=== PATIENT | female | born 1990 | race Caucasian/White ===

== ENCOUNTER 2023-10-20 06:53 | Outpatient (OUT) | payer OTHER, SELFPAY ==
[2023-10-20 07:33] LABS: Basophils Absolute Auto 0.1 10^3/uL (0.0-0.1); Basophils Percent Auto 0.6 % (0.2-2.0); Eosinophils Absolute Auto 0.1 10^3/uL (0.0-0.7); Eosinophils Percent Auto 1.5 % (0.9-7.0); Hematocrit 42.4 % (36.0-48.0); Hemoglobin 14.5 g/dL (12.0-16.0); Immature Granulocytes Abs Auto 0.02 10^3/uL (0.00-0.03); Immature Granulocytes Pct Auto 0.3 % (0.0-0.5); Lymphocytes Absolute Auto 2.3 10^3/uL (1.2-3.8); Lymphocytes Percent Auto 29.1 % (20.5-60.0); Mean Corpuscular HGB Conc 34.2 g/dL (29.9-35.2); Mean Corpuscular Hemoglobin 30.6 pg (26.7-34.0); Mean Corpuscular Volume 89.5 fL (81.0-99.0); Mean Platelet Volume 10.1 fL (9.5-13.5); Monocytes Absolute Auto 0.7 10^3/uL (0.3-0.8); Monocytes Percent Auto 8.5 % (1.7-12.0); Neutrophils Absolute Auto 4.7 10^3/uL (1.4-6.5); Platelet Count 256 10^3/uL (150-450); Red Blood Count 4.74 10^6/uL (4.20-5.40); Red Cell Distribution Width 12.2 % (11.0-15.0); White Blood Count 7.8 10^3/uL (4.0-11.0)
[2023-10-20 08:20] LABS: Estimated Average Glucose 108 mg/dL; Glycohemoglobin A1C 5.4 % (4.5-6.2)
[2023-10-20 09:56] LABS: Alanine Aminotransferase 40 U/L (14-59); Albumin Globulin Ratio 1.3; Albumin Level 3.9 g/dL (3.4-5.0); Alkaline Phosphatase 60 U/L (46-116); Anion Gap 14.1; Aspartate Amino Transferase 18 U/L (15-37); BUN Creatinine Ratio 19.1; Calcium 8.9 mg/dL (8.5-10.1); Carbon Dioxide 26.8 mmol/L (21.0-32.0); Chloride 104 mmol/L (98-107); Chol HDL Ratio 3.9; Cholesterol 161 mg/dL (<=200); Estimated GFR (African America >60 (>=60); Estimated GFR (Non-African Ame >60 (>=60); Globulin 3.1 g/dL; Glucose 83 mg/dL (74-106); HDL Cholesterol 41 mg/dL (40-60); Potassium 3.9 mmol/L (3.5-5.1); Sodium 141 mmol/L (136-145); Thyroid Stimulating Hormone 2.252 uIU/mL (0.358-3.740); Triglycerides 60 mg/dL (<=150)
[2023-10-22 11:11] LABS: Insulin 15.6 uIU/mL (2.6-24.9)
== END 2023-10-20 06:54 | disposition home or self-care (01) ==
LOC: LAB 06:53
PROVIDERS: PCP Family Medicine
DX: R53.83 Other fatigue (principal); E66.01 Morbid (severe) obesity due to excess calories; Z13.1 Encounter for screening for diabetes mellitus; E65 Localized adiposity; Z68.41 Body mass index [BMI] 40.0-44.9, adult; Z83.3 Family history of diabetes mellitus
CPT/HCPCS: 36415; 80053; 80061; 83036; 83525; 84443; 85025